=== PATIENT | female | born 1990 | race Caucasian/White ===

== ENCOUNTER 2017-01-02 14:41 | Emergency (ER) | payer OTHER ==
[~2017-01-02] VITALS: Ht 165.1 cm; Wt 72.3 kg
[2017-01-02] MEDS ORDERED: ZYRT10TA2 PO (15:03)
[2017-01-02] MEDS ORDERED: prenatal PO (15:03)
[2017-01-02] MEDS ORDERED: ACETAMINOPHEN TAB 650MG DOSE (2X325MG) PO ONE (17:00)
[2017-01-02 17:40] LABS: LYMPH % 14.9 % (24.0-44.0); MEAN CORPUSCULAR HEMOGLOBIN 30.8 pg (27.0-33.0); MEAN CORPUSCULAR HGB CONC 35.6 g/dl (32.0-36.5); MEAN CORPUSCULAR VOLUME 86.5 fl (80.0-96.0); NEUTROPHILS % 79.3 % (36.0-66.0); PLATELET COUNT, AUTOMATED 318 k/mm3 (150-450); RED CELL DISTRIBUTION WIDTH 11.9 % (11.5-14.5); WHITE BLOOD COUNT 15.8 K/mm3 (4.0-10.0)
[2017-01-02 17:41] LABS: BASO # 0.1 K/mm3 (0.0-0.2); BASO % 0.6 % (0.0-1.0); EOS % 0.2 % (0.0-3.0); LARGE UNSTAINED CELL # 0.2 K/mm3 (0.0-0.4); LYMPH # 2.4 K/mm3 (1.5-6.5); MONO # 0.6 K/mm3 (0.0-0.8); MONO % 3.9 % (0.0-5.0); NEUTROPHILS # 12.6 K/mm3 (1.8-7.7)
--- NOTE | 2017-01-02 17:49 | REP ---
Clinical: Vaginal bleeding. Technique: Transabdominal and transvaginal first trimester obstetrical ultrasound with color Doppler evaluation. Findings: The bladder is collapsed. Anteverted retroflexed uterus measures 8.6 x 4.1 x 4.8 cm. The endometrial complex is thickened to 13 mm with a small 3 mm cystic structure in the lower uterine segment. No definite gestational sac is otherwise identified. Maternal ovaries are normal in appearance and vascularity without torsion. Right ovary measures 3.4 x 2.7 x 3.7 cm with 1.5 cm corpus luteal cyst; RI 0.52. Left ovary measures 2.7 x 1.6 x 3.2 cm; RI 0.42. No pelvic fluid or adnexal mass lesion identified. Impression: 3 mm cystic structure in the lower uterine segment. No further gestational sac identified. Differential diagnosis includes early , spontaneous , and pseudogestational sac. Ectopic cannot be excluded. Correlation with serial HCG levels recommended. Signed by Vj Vick MD 01/02/2017 05:40 P
[2017-01-02 19:09] VITALS: BP 124/82
== END 2017-01-02 19:10 | disposition home or self-care (01) ==
LOC: M ED 14:41
DX: O20.0 Threatened abortion (principal); Z88.1 Allergy status to other antibiotic agents; Z79.899 Other long term (current) drug therapy

== ENCOUNTER → 2017-01-04 | Outpatient (CLI) | payer OTHER ==
[~2017-01-04] MED LIST: ZYRT10TA2 PO; prenatal PO
== END ==
LOC: M LAB 10:48
PROVIDERS: ATTEND Physician Assistant Medical
DX: O20.0 Threatened abortion (principal)

== ENCOUNTER → 2017-08-14 | Outpatient (REF) | payer OTHER | LOC: M SFHCLERA 12:12 | DX: J02.9 Acute pharyngitis, unspecified (principal) ==

== ENCOUNTER → 2018-11-18 | Outpatient (CLI) | payer OTHER ==
[~2018-11-18] MED LIST changes: +ZYRT10CA5 PO; -ZYRT10TA2 PO
--- NOTE | 2018-11-18 13:00 | REP ---
Clinical: Anatomical evaluation. Comparison: None . Findings: Examination demonstrates a single live intrauterine in variable presentation. motion is identified by technologist. Placenta is noted anterior and grade grade zero without evidence for placenta previa or abruption. Amniotic fluid volume is normal. Cervix measures 4.0 cm in length and appears closed. No evidence for nuchal cord. Gestational age by LMP 18 weeks 4 days with JOLENE 04/17/2019 . Gestational age by current measurements 18 weeks 6 days with JOLENE 04/15/2019 . FHR equals 136 beats per minute. BPD 4.1 cm 18 weeks 4 days HC 15.9 cm 18 weeks 5 days AC 13.7 cm 19 weeks 1 day FL 2.8 cm 18 weeks 3 days HL 2.8 cm 19 weeks 1 day HC/AC ratio 1.16 Estimated weight 258 grams ( 54th percentile). Anatomical assessment demonstrates normal structures including cranium, choroid plexus, cavum, cerebellum/posterior fossa, facial features, lungs, four-chamber heart/ventricular outflow tracts, diaphragm, stomach, cord insertion/three-vessel cord, kidneys/bladder, spine, and extremities. Impression: Single live intrauterine in variable presentation demonstrating appropriate interval growth. Anatomical assessment is complete and normal. No gross abnormalities are identified. Electronically Signed by Vj Vick MD 11/18/2018 12:52 P
== END ==
LOC: M RAD 11:11
PROVIDERS: ATTEND Nurse Practitioner Women's Health
DX: Z34.82 Encounter for supervision of other normal pregnancy, second trimester (principal); Z3A.18 18 weeks gestation of pregnancy